=== PATIENT | male | born 1990 | race Caucasian/White ===

== ENCOUNTER 2021-07-22 23:22 | Emergency (ER) | payer BC ==
[2021-07-22] MEDS ORDERED: TORAdol 30 mg Injection IV ONE (23:54)
[2021-07-22 23:56] LABS: Absolute Neutrophil Ct (ANC) 4.74 (1.4-6.9); Basophil (Absolute #) 0.02 (0-0.4); Eosinophil % 4.4 % (0.00-5.0); Eosinophil (Absolute #) 0.37 (0-0.5); Hematocrit 47.7 % (42-50); Hemoglobin 16.6 gm/dl (12.5-18.0); Lymphocyte (Absolute #) 2.58 (1.0-4.6); Lymphocytes % 30.6 % (24.0-44.0); Mean Cell Volume 88.7 fl (78-100); Mean Corpuscular Hemoglobin 30.9 pg (26-32); Mean Corpuscular Hgb Concent. 34.8 g/dl (32-36); Mean Platelet Volume 10.8 fl (7.5-11.0); Monocyte (Absolute #) 0.71 (0.0-1.3); Monocytes % 8.4 % (0.0-12.0); Neutrophil % 56.4 % (36.0-66.0); Platelet Count 211 K/mm3 (150-450); Red Blood Count 5.38 M/mm3 (4.1-5.6); Red Cell Distribution Width 12.6 % (11.5-14.0); White Blood Count 8.4 K/mm3 (4.0-10.5)
[2021-07-23 00:03] VITALS: O2SAT 99
[2021-07-23 00:05] LABS: INR 0.92 (0.8-3.0); PROTIME 10.8 SECONDS (9.4-12.5)
--- NOTE | 2021-07-23 00:13 | ERPHSYRPT ---
- History of Present Illness Source: patient, EMS Exam Limitations: no limitations Patient Subjective Stated Complaint: pt states he began having pain under his lt scapula around 2100, began radiating around to chest at approx 2145, no pain in chest at thistime. states pain is worse with a deep breath Triage Nursing Assessment: pt alert and oriented, answers questions approp. pt arrive per ambulance, ambulates into er and to room. steady gait noted. respirations nonlabored with lungs cta. pt reports increased pain with deep breath. and eases with his arm over his head. radial pulse and cap refill wnl. heart rate 66 sinus rhythm on monitor. Physician History: 31 yo wm w R sharp, sub-scapular pain which began at 21:00 while he was walking to his car. Pain 4/10 at present and worse w deep breaths. It is better when holding his arm over his head. He states that the pain was radiating to his chest before arrival to ER. Pain was accompanied w nausea/dyspnea wo vomiting/diaphoresis. DM/HTN/Hyperlipidemia all denied, but pt smokes 1/2 ppd. Father had an GA late 40's. Meth-cocaine use/cough/fever are all denied. Timing/Duration: other (21:00) Method of Injury: unknown (No injury) Quality: sharp Severity of Pain-Max: severe Severity of Pain-Current: mild Modifying Factors: Improves With: other (Worse w deep breaths) Associated Symptoms: nausea, No fever, No chills, No sweating, No urinary incontinence, No loss of bowel control, No constipation, No vomiting, No problems urinating, No light-headedness, No dizziness, No numbness in legs/feet, No weakness, No sensory/motor loss, No tingling in legs/feet, No lower back pain, No muscle spasms Previous symptoms: no prior history Allergies/Adverse Reactions: No Known Drug Allergies Allergy (Verified 07/23/21 00:03) Hx Tetanus, Diphtheria Vaccination/Date Given: Yes Hx Influenza Vaccination/Date Given: No Hx Pneumococcal Vaccination/Date Given: No Immunizations Up to Date: Yes Travel Risk - International Travel Have you traveled outside of the country in past 3 weeks: No - Coronavirus Screening Are you exhibiting any of the following symptoms?: No Close contact with a COVID-19 positive Pt in past 14-21 Days: No - Vaccine Status Have you recieved a Covid-19 vaccination: No - Review of Systems Constitutional: No Symptoms Eyes: No Symptoms Ears, Nose, & Throat: No Symptoms Respiratory: No Symptoms, Dyspnea Cardiac: No Symptoms, Chest Pain Abdominal/Gastrointestinal: No Symptoms, Nausea Genitourinary Symptoms: No Symptoms Musculoskeletal: No Symptoms Skin: No Symptoms Neurological: No Symptoms Psychological: No Symptoms Endocrine: No Symptoms Hematologic/Lymphatic: No Symptoms Immunological/Allergic: No Symptoms - Past Surgical History Past Surgical History: Yes Gastrointestinal: Appendectomy, Other Other Surgical History: adrenal surgery, appy - Social History Smoking Status: Current every day smoker Exposure to second hand smoke: No Drug Use: none Patient Lives Alone: No Significant Family History: no pertinent family hx - Nursing Vital Signs Nursing Vital Signs: Initial Vital Signs Temperature 98.1 F 07/22/21 23:35 Pulse Rate 67 07/22/21 23:35 Respiratory Rate 16 07/22/21 23:35 Blood Pressure 117/84 07/22/21 23:35 O2 Sat by Pulse Oximetry 99 07/22/21 23:35 Pain Scale Pain Intensity 2 WNL - Physical Exam General Appearance: no apparent distress Eye Exam: PERRL/EOMI, eyes nml inspection Ears, Nose, Throat Exam: normal ENT inspection, TMs normal, pharynx normal, moist mucous membranes Neck Exam: normal inspection, non-tender, supple, full range of motion, No meningismus, No mass, No Brudzinski, No Kernig's Respiratory Exam: normal breath sounds, lungs clear, airway intact, No chest t enderness, No respiratory distress Cardiovascular Exam: regular rate/rhythm, normal heart sounds, normal peripheral pulses, capillary refill <2 sec, No murmur Gastrointestinal Exam: soft, normal bowel sounds, No tenderness Back Exam: normal inspection, normal range of motion, No CVA tenderness, No vertebral tenderness Extremity Exam: normal inspection, normal range of motion Peripheral Pulses: carotid (R): 2+, carotid (L): 2+ Neurologic Exam: alert, oriented x 3, cooperative, family resource coordinator II-XII nml as tested, normal mood/affect, nml cerebellar function, nml station & gait, sensation nml, No motor deficits, No sensory deficit Skin Exam: normal color, warm, dry Lymphatic Exam: No adenopathy SpO2 Interpretation: normal SpO2: 99 O2 Delivery: Room Air - Course Nursing assessment & vital signs reviewed: Yes EKG Interpreted by Me: RATE (NSR/R62/Normal QT-QTc/No acute ST segment changes) - Radiology Exams Chest X-ray Interpretation: Interpreted by me (SHIN) Ordered Tests: Active Orders 24 hr Category Date Time Status Pest Control Pilot STAT Care 07/22/21 23:38 Completed CHEST 1 VIEW (PORTABLE) Stat Exams 07/22/21 23:38 Taken CBC W DIFF Stat Lab 07/22/21 23:50 Completed CMP Stat Lab 07/22/21 23:50 Completed PROTIME WITH INR Stat Lab 07/22/21 23:50 Completed PTT Stat Lab 07/22/21 23:50 Completed TROPONIN Q3H Lab 07/22/21 23:50 Completed Medication Summary Discontinued Medications Generic Name Dose Route Start Last Admin Trade Name Freq PRN Reason Stop Dose Admin Ketorolac Tromethamine 15 mg 07/22/21 23:54 07/23/21 00:19 Ketorolac Tromethamine 30 Mg/Ml Inj IV 07/22/21 23:55 15 mg STAT ONE Administration Ketorolac Tromethamine Confirm 07/23/21 00:16 Ketorolac Tromethamine 30 Mg/Ml Inj Administered 07/23/21 00:17 Dose 30 mg .ROUTE .STK-MED ONE Lab/Rad Data: Laboratory Result Diagrams 07/22/21 23:50 07/22/21 23:50 Laboratory Results 07/22/21 07/22/21 07/22/21 Range/Units 23:50 23:50 23:50 WBC (4.0-10.5) K/mm3 RBC (4.1-5.6) M/mm3 Hgb (12.5-18.0) gm/dl Hct (42-50) % MCV (78-100) fl MCH (26-32) pg MCHC (32-36) g/dl RDW (11.5-14.0) % Plt Count (150-450) K/mm3 MPV (7.5-11.0) fl Gran % (36.0-66.0) % Eos # (Auto) (0-0.5) Absolute Lymphs (auto) (1.0-4.6) Absolute Monos (auto) (0.0-1.3) Lymphocytes % (24.0-44.0) % Monocytes % (0.0-12.0) % Eosinophils % (0.00-5.0) % Basophils % (0.0-0.4) % Absolute Granulocytes (1.4-6.9) Basophils # (0-0.4) PT 10.8 (9.4-12.5) SECONDS INR 0.92 (0.8-3.0) APTT 37.0 H (25.1-36.5) SECONDS Sodium 137 (137-145) mmol/L Potassium 4.4 (3.5-5.1) mmol/L Chloride 105 (98-107) mmol/L Carbon Dioxide 21 L (22-30) mmol/L Anion Gap 14.5 (5-15) MEQ/L BUN 11 (9-20) mg/dL Creatinine 0.72 (0.66-1.25) mg/dL Estimated GFR > 60.0 ML/MIN Glucose 95 (74-106) mg/dL Calcium 9.3 (8.4-10.2) mg/dL Total Bilirubin 1.30 (0.2-1.3) mg/dL AST 23 (17-59) U/L ALT 28 (0-50) U/L Alkaline Phosphatase 74 (38-126) U/L Troponin I < 0.012 (0.000-0.034) ng/mL Serum Total Protein 7.6 (6.3-8.2) g/dL Albumin 4.7 (3.5-5.0) g/dL 07/22/21 Range/Units 23:50 WBC 8.4 (4.0-10.5) K/mm3 RBC 5.38 (4.1-5.6) M/mm3 Hgb 16.6 (12.5-18.0) gm/dl Hct 47.7 (42-50) % MCV 88.7 (78-100) fl MCH 30.9 (26-32) pg MCHC 34.8 (32-36) g/dl RDW 12.6 (11.5-14.0) % Plt Count 211 (150-450) K/mm3 MPV 10.8 (7.5-11.0) fl Gran % 56.4 (36.0-66.0) % Eos # (Auto) 0.37 (0-0.5) Absolute Lymphs (auto) 2.58 (1.0-4.6) Absolute Monos (auto) 0.71 (0.0-1.3) Lymphocytes % 30.6 (24.0-44.0) % Monocytes % 8.4 (0.0-12.0) % Eosinophils % 4.4 (0.00-5.0) % Basophils % 0.2 (0.0-0.4) % Absolute Granulocytes 4.74 (1.4-6.9) Basophils # 0.02 (0-0.4) PT (9.4-12.5) SECONDS INR (0.8-3.0) APTT (25.1-36.5) SECONDS Sodium (137-145) mmol/L Potassium (3.5-5.1) mmol/L Chloride (98-107) mmol/L Carbon Dioxide (22-30) mmol/L Anion Gap (5-15) MEQ/L BUN (9-20) mg/dL Creatinine (0.66-1.25) mg/dL Estimated GFR ML/MIN Glucose (74-106) mg/dL Calcium (8.4-10.2) mg/dL Total Bilirubin (0.2-1.3) mg/dL AST (17-59) U/L ALT (0-50) U/L Alkaline Phosphatase (38-126) U/L Troponin I (0.000-0.034) ng/mL Serum Total Protein (6.3-8.2) g/dL Albumin (3.5-5.0) g/dL - Progress Progress Note: 07/23/21 00:48 Heart Score 1 15mg IV Toradol w mild improvement Counseled pt/family regarding: lab results, diagnosis, need for follow-up, rad results - Departure Departure Disposition: Home Clinical Impression: Pleuritic chest pain Condition: Stable Critical Care Time: No Referrals: DOCTOR,NO FAMILY [Primary Care Provider] - Follow up/PCP as directed Instructions: Pleuritic Chest Pain (DC) Additional Instructions: Follow up with your family MD on Sunday Return to ER for increasing pain, shortness of breath, or temperature greater than 100.5 Forms: Work/School Release Form Prescriptions: Etodolac 400 mg [Lodine 400 mg] 400 mg PO BID PRN PRN #14 tablet PRN Reason: Pain
[2021-07-23 00:15] LABS: ALBUMIN 4.7 g/dL (3.5-5.0); ALKALINE PHOSPHATASE 74 U/L (38-126); ANION GAP 14.5 MEQ/L (5-15); BLOOD UREA NITROGEN 11 mg/dL (9-20); CHLORIDE 105 mmol/L (98-107); Calcium 9.3 mg/dL (8.4-10.2); Carbon Dioxide 21 mmol/L (22-30); Creatinine 1 0.72 mg/dL (0.66-1.25); EST GLOMERULAR FILTRATION RATE > 60.0 ML/MIN; Glucose 95 mg/dL (74-106); Potassium 4.4 mmol/L (3.5-5.1); SGOT/AST 23 U/L (17-59); SGPT/ALT 28 U/L (0-50); SODIUM 137 mmol/L (137-145); Total Protein 7.6 g/dL (6.3-8.2)
[2021-07-23] MEDS ORDERED: TORAdol 30 mg Injection ONE (00:16)
[2021-07-23 01:09] VITALS: BP 126/85; PULSE 64
--- NOTE | 2021-07-23 07:18 | XRAY ---
Indication: Chest pain. Comparison: None Portable chest hyperinflated with minimal lingula fibrosis/scarring. No focal infiltrate, consolidation, or large effusion. Heart and mediastinal structures within normal limits with a few incidental tiny hilar calcified granulomas. Bony thorax intact. Impression: Nonacute hyperinflated chest with chronic features.
== END 2021-07-23 01:06 | disposition home or self-care (01) ==
LOC: ED 23:22
DX: R07.81 Pleurodynia (principal); R11.0 Nausea; Z72.0 Tobacco use
CPT/HCPCS: 36000; 36415; 71045; 80053; 84484; 85025; 85610; 85730; 93041; 96374; 99284; J1885